=== PATIENT | female | born 1965 | race Caucasian/White ===

== ENCOUNTER 2016-11-06 13:45 | Emergency (ER) | payer OTHER ==
[2016-11-06 14:07] VITALS: BP 145/80; PULSE 81; RESP 18; TEMP 98.4
[2016-11-06] MEDS ORDERED: ORPHENADRINE 30 MG/ML 2 ML VIAL IM STA (14:30)
[2016-11-06] MEDS ORDERED: KETOROLAC 60 MG/2 ML VIAL IM STA (14:30)
--- NOTE | 2016-11-06 14:30 | ED ---
General Adult HPI - General Chief complaint: Back Pain/Injury Stated complaint: Sciatica Pain Time Seen by Provider: 11/06/16 14:17 Source: patient, RN notes reviewed Mode of arrival: ambulatory Limitations: no limitations - History of Present Illness Initial comments: This is a 51-year-old female who presents with radicular pain down the left lower extremity. Patient states this feels like the sciatica symptoms that she has dealt with in the past. Patient states she's had similar symptoms to the right leg. Patient denies any fall or injury to the back. Patient states this is been bothering her for about 7 days. Patient has mostly been taking Motrin for the pain. Patient is requesting Toradol. Patient denies any numbness/ weakness or tingling to bilateral lower extremities. Patient is able to ambulate. Patient states she has chronic back pain, but this is at baseline today. Patient's past medical history significant for multiple sclerosis and pseudotumor cerebri. Patient denies any history of asthma or GI bleeding. Patient denies any recent fever, chills, shortness breath, chest pain, abdominal pain, nausea/vomiting/diarrhea, back pain, hematuria, headache, or visual changes, or any other complaints. - Related Data Home Medications Medication Instructions Recorded Confirmed acetaZOLAMIDE [Diamox] 250 mg PO BID 04/22/15 04/23/15 Previous Rx's Medication Instructions Recorded Aspirin EC [Ecotrin Low Dose] 81 mg PO DAILY tablet. 04/26/15 Atorvastatin [Lipitor] 10 mg PO HS #30 tab 04/26/15 INSULIN LISPRO (HumaLOG) [humaLOG] 0 units SQ ACHS #1 vial 04/26/15 INSULIN LISPRO (HumaLOG) [humaLOG] 5 units SQ ACHS #1 vial 04/26/15 Insulin NPH/Reg Insulin 70/30 40 unit SQ AC-BID vial 04/26/15 [humuLIN 70/30 VIAL] Nizatidine [Axid] 150 mg PO BID #60 capsule 04/26/15 predniSONE 0 mg PO DIRECTED #150 tab 04/26/15 Cyclobenzaprine [Flexeril] 5 mg PO TID 3 Days 11/06/16 Allergies Allergy/AdvReac Type Severity Reaction Status Date / Time Penicillins Allergy Anaphylaxis Verified 11/06/16 14:07 Sulfa (Sulfonamide Allergy Anaphylaxis Verified 11/06/16 14:07 Antibiotics) Review of Systems ROS Statement: Those systems with pertinent positive or pertinent negative responses have been documented in the HPI. ROS Other: All systems not noted in ROS Statement are negative. Past Medical History Past Medical History: Diabetes Mellitus, Thyroid Disorder Additional Past Medical History / Comment(s): MS, History of Any Multi-Drug Resistant Organisms: None Reported Past Surgical History: Cholecystectomy Past Anesthesia/Blood Transfusion Reactions: No Reported Reaction Past Psychological History: No Psychological Hx Reported Smoking Status: Current every day smoker Past Alcohol Use History: None Reported Past Drug Use History: None Reported - Past Family History Father Family Medical History: Cancer Additional Family Medical History / Comment(s): lung General Exam - General Exam Comments Initial Comments: General: The patient is awake and alert, in no distress, and does not appear acutely ill. Neck: The neck is supple, there is no tenderness or JVD. Cardiovascular: There is a regular rate and rhythm. No murmur, rub or gallop is appreciated. Respiratory: Lungs are clear to auscultation, respirations are non-labored, breath sounds are equal. No wheezes, stridor, rales, or rhonchi. Musculoskeletal: There is tenderness to palpation over the posterior left hip. Negative straight leg raise. There is also tenderness to the lumbar spine, but patient states this is chronic for her. Full range of motion, strength 5/5 and Sensation intact. Posterior tibial pulses are 2+ bilaterally. Patient is able to ambulate. Neurological: A&O x 3. CN II-XII intact, There are no obvious motor or sensory deficits. Coordination appears grossly intact. Speech is normal. Skin: Skin is warm and dry and no rashes or lesions are noted. Psychiatric: Normal mood and affect. Limitations: no limitations Course Vital Signs 11/06/16 14:02 Temperature 98.4 F Pulse Rate 81 Respiratory 18 Rate Blood Pressure 145/80 O2 Sat by Pulse 97 Oximetry Medical Decision Making - Medical Decision Making Is a 51-year-old female presents with left-sided sciatic pain. On physical exam there is tenderness to palpation over the posterior left hip. Negative straight leg raise. There is also tenderness to the lumbar spine, but patient states this is chronic for her. Full range of motion, strength 5/5 and Sensation intact. Posterior tibial pulses are 2+ bilaterally. Patient is requesting Toradol. Patient was given a dose of Toradol and Norflex in the EC today. Discussed [id number] ibuprofen and/or Tylenol for any pain. Discussed avoiding steroids due to patient's history of diabetes. Patient was receptive to this. Discussed the patient will be given a prescription for Flexeril. Discussed that patient should follow up with PCP in one to 2 days or return to the [facility] for any worsening symptoms or for any further concerns. Patient was receptive to this plan and patient will be discharged home. I discussed his case with attending physician Dr. Weathers who agrees the plan as stated above. Disposition Clinical Impression: Sciatica Disposition: HOME SELF-CARE Condition: Good Instructions: Sciatica (ED) Additional Instructions: Please continue use of ibuprofen or Tylenol [id number] severe for pain. Please use Flexeril as prescribed and be aware that this medication can make you drowsy. Please follow-up with family doctor in the next 2 days of symptoms have not improved. Please return to emergency room if the symptoms increase or worsen or for any other concerns. Prescriptions: Cyclobenzaprine [Flexeril] 5 mg PO TID 3 Days Time of Disposition: 14:38
== END 2016-11-06 14:46 | disposition home or self-care (01) ==
LOC: EC 13:45
DX: M54.32 Sciatica, left side (principal); G89.29 Other chronic pain; M54.9 Dorsalgia, unspecified; G35 Multiple sclerosis; E11.9 Type 2 diabetes mellitus without complications; F17.200 Nicotine dependence, unspecified, uncomplicated; G93.2 Benign intracranial hypertension; Z79.899 Other long term (current) drug therapy; Z88.0 Allergy status to penicillin; Z88.2 Allergy status to sulfonamides
CPT/HCPCS: 96372 ×2; 99283; J2360; J1885

== ENCOUNTER → 2016-11-18 | Outpatient (CLI) | payer OTHER ==
--- NOTE | 2016-11-18 22:05 | MR ---
EXAMINATION TYPE: MR lumbar spine wo con DATE OF EXAM: 11/18/2016 5:14 PM COMPARISON: NONE HISTORY: Multiple sclerosis, Subacute back pain TECHNIQUE: Single sagittal T2 sequence was obtained. Patient could not continue with additional imaging. FINDINGS: Severely limited exam due to single sequence obtained. Suggestion of abnormal signal within the spina l cord at the T10-T11 level. Alignment is anatomic and vertebral body height is maintained. Severe degenerative disc disease L5-S1 with loss of disc signal and base. Mild to moderate changes at L4-L5. At L4-L5 there is a suggestion of a sagittal disc bulge. No obvious canal stenosis. L5-S1 there is suggestion of a sagittal disc protrusion. Discogenic marrow changes seen with severe d egenerative disc disease and bilateral foraminal encroachment to a moderate degree with facet arthrop athy. Remaining levels on this single sequence provided demonstrate no definite abnormality. IMPRESSION: 1. Limited exam due the patient's inability complete the exam. Only a single T2 sagittal sequence cou ld be obtained. Findings are suspicious of abnormal signal within the spinal cord at the T10-T11 leve l which could be related myelitis. Correlate clinically. 2. Findings suggest sagittal disc protrusion L5-S1 with moderate bilateral foraminal encroachment and severe degenerative disc disease. 3. Sagittal disc bulging L4-L5 with mild to moderate degenerative disc disease.
== END | disposition home or self-care (01) ==
LOC: RADMRIMAIN 16:37
PROVIDERS: ATTEND Psychiatry & Neurology Neurology
DX: M51.26 Other intervertebral disc displacement, lumbar region (principal); M51.36 Other intervertebral disc degeneration, lumbar region
CPT/HCPCS: 72148

== ENCOUNTER → 2017-06-24 | Outpatient (CLI) | payer OTHER ==
--- NOTE | 2017-06-24 12:15 | MR ---
EXAMINATION TYPE: MR brain wo con DATE OF EXAM: 06/24/2017 COMPARISON: 04/23/2015 HISTORY: MS TECHNIQUE: Multiplanar, multisequence images of the brain and brainstem is performed without the utilization of intravenous contrast. FINDINGS: Diffusion weighted images demonstrate no evidence of a recent infarct or other diffusion ab normality. Punctate foci of T2 shine through are seen within the left frontal lobe on image 184 of se rashid 5 and within the right pericallosal white matter on image 152 without corresponding low signal o n ADC map. Scattered areas of T2/FLAIR hyperintensity are seen within the subcortical, pericallosal, and periven tricular white matter. The largest lymph node measures located within the right frontal lobe within t he superior frontal gyrus measuring 1.0 x 3.8 mm with adjacent signal abnormalities. The largest on t he left is located within the parietal lobe in the guzman radiata measuring 8.6 x 3.1 mm. No plaques are seen within the brainstem or cerebellum. There is no extra-axial fluid collection or significant white matter signal abnormality. The ventric ular system and cisternal spaces are normal in size and appearance. The brain volume is age appropri ate. Midline structures demonstrate normal morphology. The craniocervical junction appears within normal limits. Unchanged subcentimeter left maxillary mucosal retention cyst versus polyp is identified. Rem aining paranasal sinuses are unremarkable. The dural venous sinuses appear patent. The globes are int act. No obvious encephalomalacia is seen in the dorsal midbrain in the region of prior stated CVA. IMPRESSION: 1. Overall similar size, morphology, and number of supratentorial white matter lesions in keeping wit h the patient's history of multiple sclerosis. 2. Chronic subcentimeter left maxillary mucosal retention cyst versus polyp.
== END | disposition home or self-care (01) ==
LOC: RADMRIMAIN 10:49
PROVIDERS: ATTEND Psychiatry & Neurology Neurology
DX: G35 Multiple sclerosis (principal); G93.2 Benign intracranial hypertension; Z86.73 Personal history of transient ischemic attack (TIA), and cerebral infarction without residual deficits
CPT/HCPCS: 70551

== ENCOUNTER → 2017-06-26 | Outpatient (CLI) | payer OTHER ==
[2017-06-26 11:58] LABS: Basophils # (A) 0.1 k/uL (0-0.2); Basophils % (A) 1 %; CH 28.5; CHCM 33.2; Eosinophils # (A) 0.8 k/uL (0-0.7); Eosinophils % (A) 8 %; HCT 46.7 % (34.0-46.0); HDW 2.42; HGB 15.7 gm/dL (11.4-16.0); Luc # (Auto) 0.25; Luc % (Auto) 3; Lymphocytes # (A) 3.4 k/uL (1.0-4.8); Lymphocytes % (A) 36 %; MCH 28.9 pg (25.0-35.0); MCHC 33.6 g/dL (31.0-37.0); Mean Platelet Volume 7.3; Monocytes # (A) 0.5 k/uL (0-1.0); Monocytes % (A) 5 %; Neutrophils # (A) 4.6 k/uL (1.3-7.7); Neutrophils % (A) 48 %; RBC 5.43 m/uL (3.80-5.40); RDW 13.5 % (11.5-15.5); WBC 9.6 k/uL (3.8-10.6); WBC (Perox) 9.61
== END | disposition home or self-care (01) ==
LOC: LABWHC1 11:23
PROVIDERS: ATTEND Psychiatry & Neurology Neurology
DX: G35 Multiple sclerosis (principal)
CPT/HCPCS: 36415; 82306; 82607; 84439; 84443; 84450; 84460; 85025

== ENCOUNTER 2017-07-04 22:27 | Emergency (ER) | payer OTHER ==
[2017-07-04 22:34] VITALS: BP 126/67; PULSE 78; RESP 18; TEMP 97.8
[2017-07-04] MEDS ORDERED: DIPH,PERTUS(ACELL)TETVAC-LF 0.5 ML VIAL IM ONE (23:23)
[2017-07-04] MEDS ORDERED: CLINDAMYCIN 150 MG CAP PO STA (23:37)
[2017-07-04] MEDS ORDERED: IBUPROFEN 600 MG STARTER PACK 4 TAB BTL PO STA (23:37)
--- NOTE | 2017-07-04 23:37 | ED ---
General Adult HPI - General Chief complaint: Skin/Abscess/Foreign Body Stated complaint: Burn/Foot Time Seen by Provider: 07/04/17 23:06 Source: patient, RN notes reviewed Mode of arrival: ambulatory Limitations: no limitations - History of Present Illness Initial comments: 52 yo female presents to the ER with cc of left foot second-degree burn. Patient states that she still boil on this 3 days ago. Patient is far less tenderness. Patient states now some pain and swelling to the top of the foot with associated redness of she was concerned. Patient denies any calf pain. Patient denies any fever chills. Patient denies any nausea vomiting. Patient states redness and swelling has stayed at her foot does not seem to be traveling upwards. Patient states that she is not currently having any other symptoms at this. Patient states that she does have a history of diabetes. Patient was concerned due to the continued pain so she thought that she should be evaluated.Patient denies any recent fever, chills, shortness of breath, chest pain, back pain, abdominal pain, nausea vomiting, numbness or tingling, dysuria or hematuria, constipation or diarrhea, headaches or visual changes, or any other current symptoms. - Related Data Home Medications Medication Instructions Recorded Confirmed acetaZOLAMIDE [Diamox] 250 mg PO BID 04/22/15 07/04/17 Previous Rx's Medication Instructions Recorded Aspirin EC [Ecotrin Low Dose] 81 mg PO DAILY tablet. 04/26/15 Atorvastatin [Lipitor] 10 mg PO HS #30 tab 04/26/15 INSULIN LISPRO (HumaLOG) [humaLOG] 0 units SQ ACHS #1 vial 04/26/15 INSULIN LISPRO (HumaLOG) [humaLOG] 5 units SQ ACHS #1 vial 04/26/15 Insulin NPH/Reg Insulin 70/30 40 unit SQ AC-BID vial 04/26/15 [humuLIN 70/30 VIAL] Nizatidine [Axid] 150 mg PO BID #60 capsule 04/26/15 predniSONE 0 mg PO DIRECTED #150 tab 04/26/15 Cyclobenzaprine [Flexeril] 5 mg PO TID 3 Days 11/06/16 Bacitracin Oint 1 applic TOPICAL BID 7 Days 07/04/17 Clindamycin [Cleocin] 450 mg PO Q8HR #90 capsule 07/04/17 Ibuprofen [Motrin] 600 mg PO Q6HR PRN #20 tab 07/04/17 Allergies Allergy/AdvReac Type Severity Reaction Status Date / Time Penicillins Allergy Anaphylaxis Verified 07/04/17 22:34 Sulfa (Sulfonamide Allergy Anaphylaxis Verified 07/04/17 22:34 Antibiotics) Review of Systems ROS Statement: Those systems with pertinent positive or pertinent negative responses have been documented in the HPI. ROS Other: All systems not noted in ROS Statement are negative. Past Medical History Past Medical History: Diabetes Mellitus, Thyroid Disorder Additional Past Medical History / Comment(s): MS, History of Any Multi-Drug Resistant Organisms: None Reported Past Surgical History: Cholecystectomy Past Anesthesia/Blood Transfusion Reactions: No Reported Reaction Past Psychological History: No Psychological Hx Reported Smoking Status: Current every day smoker Past Alcohol Use History: None Reported Past Drug Use History: None Reported - Past Family History Father Family Medical History: Cancer Additional Family Medical History / Comment(s): lung General Exam - General Exam Comments Initial Comments: General: The patient is awake and alert, in no distress, and does not appear acutely ill. Neck: The neck is supple, there is no tenderness. Cardiovascular: There is a regular rate and rhythm. No murmur, rub or gallop is appreciated. Respiratory: Lungs are clear to auscultation, respirations are non-labored, breath sounds are equal. No wheezes, stridor, rales, or rhonchi. Musculoskeletal: Sensation intact with 2+ pulses at the level chancre frontal motion of left knee left ankle. Patient is could have some redness to the left foot surrounding a 3 x 3 cm second-degree burn. At the left foot. Full range of motion of the left foot. No fluctuance noted. Neurological: CN II-XII intact, There are no obvious motor or sensory deficits. Coordination appears grossly intact. Speech is normal. Skin: Skin is warm and dry and no rashes or lesions are noted. Psychiatric: Normal mood and affect. Limitations: no limitations Course Vital Signs 07/04/17 22:31 Temperature 97.8 F Pulse Rate 78 Respiratory 18 Rate Blood Pressure 126/67 O2 Sat by Pulse 98 Oximetry Procedures - Procedures Initial comment: The area was cleaned. Debridement of skin was removed. Patient tolerated the procedure well. Medical Decision Making - Medical Decision Making 52-year-old female presents for second degree burn to left foot. At this time there is appear to be associated infection. The patient's tetanus. It was cleaned. We discussed care of the area. Discussed antibiotics for home. We discussed follow-up with discussed return parameters and all questions have been answered. Patient is in agreement plan. This time she will be discharged home. Disposition Clinical Impression: Burn of foot, left, second degree, Cellulitis of left foot Disposition: HOME SELF-CARE Condition: Stable Instructions: Second Degree Burn (ED), Cellulitis (ED) Additional Instructions: Please use medication as discussed. Please follow up with family doctor if symptoms have not improved over the next two days. Please return to the emergency room if your symptoms increase or worsen or for any other concerns. Prescriptions: Bacitracin Oint 1 applic TOPICAL BID 7 Days Clindamycin [Cleocin] 450 mg PO Q8HR #90 capsule Ibuprofen [Motrin] 600 mg PO Q6HR PRN #20 tab PRN Reason: Pain Referrals: Toby Chauhan MD [Primary Care Provider] - 1-2 days Time of Disposition: 23:34
== END 2017-07-04 23:53 | disposition home or self-care (01) ==
LOC: EC 22:27
DX: T25.222A Burn of second degree of left foot, initial encounter (principal); L03.116 Cellulitis of left lower limb; F17.200 Nicotine dependence, unspecified, uncomplicated; Z79.899 Other long term (current) drug therapy; Z88.0 Allergy status to penicillin; Z88.2 Allergy status to sulfonamides; Z23 Encounter for immunization; X10.2XXA Contact with fats and cooking oils, initial encounter
CPT/HCPCS: 16020; 90471; 90715; 99283

== ENCOUNTER 2017-08-09 16:28 | Emergency (ER) | payer OTHER ==
[2017-08-09 16:44] VITALS: BP 149/91; PULSE 81; RESP 18; TEMP 98.2
[2017-08-09] MEDS ORDERED: TOPICAL SKIN ADHESIVE 1 EACH AMP TOPICAL ONE (16:46)
--- NOTE | 2017-08-09 16:51 | ED ---
Wound/Laceration HPI - General Stated Complaint: Finger Laceration Time Seen by Provider: 08/09/17 16:39 Source: patient, RN notes reviewed Mode of arrival: ambulatory Limitations: no limitations - History of Present Illness -: hour(s) (1 hour) Extremity Location: Left: Hand (pad of left 3rd digit) Place: home Patient Tetanus UTD: Yes Context: accidental, fall, other (Patient is unsure what she cut her finger on when she fell.) Associated Symptoms: none - Related Data Home Medications Medication Instructions Recorded Confirmed acetaZOLAMIDE [Diamox] 250 mg PO BID 04/22/15 07/04/17 Previous Rx's Medication Instructions Recorded Aspirin EC [Ecotrin Low Dose] 81 mg PO DAILY tablet. 04/26/15 Atorvastatin [Lipitor] 10 mg PO HS #30 tab 04/26/15 INSULIN LISPRO (HumaLOG) [humaLOG] 0 units SQ ACHS #1 vial 04/26/15 INSULIN LISPRO (HumaLOG) [humaLOG] 5 units SQ ACHS #1 vial 04/26/15 Insulin NPH/Reg Insulin 70/30 40 unit SQ AC-BID vial 04/26/15 [humuLIN 70/30 VIAL] Nizatidine [Axid] 150 mg PO BID #60 capsule 04/26/15 predniSONE 0 mg PO DIRECTED #150 tab 04/26/15 Cyclobenzaprine [Flexeril] 5 mg PO TID 3 Days 11/06/16 Bacitracin Oint 1 applic TOPICAL BID 7 Days 07/04/17 Clindamycin [Cleocin] 450 mg PO Q8HR #90 capsule 07/04/17 Ibuprofen [Motrin] 600 mg PO Q6HR PRN #20 tab 07/04/17 Allergies Allergy/AdvReac Type Severity Reaction Status Date / Time Penicillins Allergy Anaphylaxis Verified 08/09/17 16:42 Sulfa (Sulfonamide Allergy Anaphylaxis Verified 08/09/17 16:42 Antibiotics) Review of Systems ROS Statement: Those systems with pertinent positive or pertinent negative responses have been documented in the HPI. ROS Other: All systems not noted in ROS Statement are negative. Constitutional: Denies: fever, chills Respiratory: Denies: cough, dyspnea Cardiovascular: Denies: chest pain Gastrointestinal: Denies: abdominal pain, nausea, vomiting, diarrhea Genitourinary: Denies: dysuria, hematuria Skin: Denies: rash Neurological: Denies: headache Past Medical History Past Medical History: Diabetes Mellitus, Thyroid Disorder Additional Past Medical History / Comment(s): MS, History of Any Multi-Drug Resistant Organisms: None Reported Past Surgical History: Cholecystectomy Past Anesthesia/Blood Transfusion Reactions: No Reported Reaction Past Psychological History: No Psychological Hx Reported Smoking Status: Current every day smoker Past Alcohol Use History: None Reported Past Drug Use History: None Reported - Past Family History Father Family Medical History: Cancer Additional Family Medical History / Comment(s): lung General Exam - General Exam Comments Initial Comments: General: Awake and alert, well-developed; in no apparent distress. HEENT: Head atraumatic, normocephalic. Pupils are equal, round and reactive to light. Extraocular movements intact. Neck: Supple. Normal ROM. Cardiovascular: Regular rate and rhythm. No murmurs, rubs or gallops. Chest symmetrical. Respiratory: Lungs clear to auscultation bilaterally. No wheezes, rales or rhonchi. Normal respiratory effort with no use of accessory muscles. Skin/Musculoskeletal: Small crescent-shaped laceration on pad of left third digit, involving only epithelial layer. Sensation is intact. Radial pulses are 2+ and palpable. Neurological: Alert and oriented x3. CN II-XII grossly intact. Speech is fluent and answers are appropriate. No focal neuro deficits. Psychiatric: Normal mood and affect. No overt signs of depression or anxiety noted. Procedures - Laceration Laceration #1 Consent Obtained: verbal consent Indication: laceration Site: other (pad of left 3rd digit) Size (cm): 1 Description: flap Depth: simple, single layer Sedation/Analgesia: none Pre-repair: wound explored, irrigated extensively, deep structures intact Type of Sutures: other (dermabond ) Patient Tolerated Procedure: well, no complications Medical Decision Making - Medical Decision Making This is a 52-year-old female who presents to emergency department with chief complaint of left finger laceration. Edges of the laceration were well approximated. Dermabond was applied and dressing was placed. Patient is in no acute distress and will be discharged home. Disposition Clinical Impression: Laceration of left middle finger Disposition: HOME SELF-CARE Condition: Good Instructions: Laceration (ED) Additional Instructions: Please allow Dermabond to dry and fall off on its own within the next few days. Please return to the ED if any signs of infection should arise including redness, tenderness or purulent discharge. Please follow up with primary care provider within 1-2 days. Return to emergency department if symptoms should worsen or any concerns arise. Referrals: Toby Chauhan MD [Primary Care Provider] - 1-2 days Time of Disposition: 16:54
== END 2017-08-09 17:05 | disposition home or self-care (01) ==
LOC: EC 16:28
DX: S61.213A Laceration without foreign body of left middle finger without damage to nail, initial encounter (principal); F17.200 Nicotine dependence, unspecified, uncomplicated; Z88.0 Allergy status to penicillin; Z88.2 Allergy status to sulfonamides; Z79.899 Other long term (current) drug therapy; W19.XXXA Unspecified fall, initial encounter
CPT/HCPCS: 12001; 99282

== ENCOUNTER 2017-11-16 15:31 | Emergency (ER) | payer OTHER ==
[2017-11-16] MEDS ORDERED: SODIUM CHLORIDE 0.9% 1,000 ML IV STA (16:06)
[2017-11-16] MEDS ORDERED: METOCLOPRAMIDE 5 MG/ML 2 ML VIAL IVP STA (16:07)
[2017-11-16] MEDS ORDERED: diphenhydrAMINE 50 MG/ML 1 ML VIAL IVP STA (16:07)
--- NOTE | 2017-11-16 16:29 | ED ---
General Adult HPI - General Chief complaint: Headache Stated complaint: HEADACHE Time Seen by Provider: 11/16/17 16:06 Source: patient, RN notes reviewed Mode of arrival: ambulatory Limitations: no limitations - History of Present Illness Initial comments: Patient's a 52-year-old female significant past medical history for stroke, who presents emergency room today with a chief complaint of bilateral eye flickering. Patient states that yesterday she began feeling like she was coming down with cold. She does admit that she later the day began having some chest palpitations. Patient admits that today she's had a headache located both in size the top. She describes it as pressure. She currently rates an 8/ 10. She states she's had headaches similar in the past. Patient admits to some flickering in her eyes bilaterally worse on the left than the right. She states it has improved and seems to be going away at this time. Patient denies any other points or symptoms currently. Patient denies any recent fever, chills , shortness of breath, chest pain, back pain, abdominal pain, nausea or vomiting , numbness or tingling, dysuria or hematuria, constipation or diarrhea, or any other complaints. - Related Data Home Medications Medication Instructions Recorded Confirmed No Known Home Medications [No 11/16/17 11/16/17 Known Home Medications] Allergies Allergy/AdvReac Type Severity Reaction Status Date / Time Penicillins Allergy Anaphylaxis Verified 11/16/17 16:18 Sulfa (Sulfonamide Allergy Anaphylaxis Verified 11/16/17 16:18 Antibiotics) Review of Systems ROS Statement: Those systems with pertinent positive or pertinent negative responses have been documented in the HPI. ROS Other: All systems not noted in ROS Statement are negative. Past Medical History Past Medical History: CVA/TIA, Diabetes Mellitus, Thyroid Disorder Additional Past Medical History / Comment(s): MS, History of Any Multi-Drug Resistant Organisms: None Reported Past Surgical History: Cholecystectomy Past Anesthesia/Blood Transfusion Reactions: No Reported Reaction Past Psychological History: No Psychological Hx Reported Smoking Status: Current every day smoker Past Alcohol Use History: None Reported Past Drug Use History: None Reported - Past Family History Father Family Medical History: Cancer Additional Family Medical History / Comment(s): lung General Exam - General Exam Comments Initial Comments: General: The patient is awake and alert, in no distress, and does not appear acutely ill. Eye: Pupils are equal, round and reactive to light, extra-ocular movements are intact. No nystagmus. There is normal conjunctiva bilaterally. No signs of icterus. Ears, nose, mouth and throat: There are moist mucous membranes and no oral lesions. Neck: The neck is supple, there is no tenderness or JVD. Cardiovascular: There is a regular rate and rhythm. No murmur, rub or gallop is appreciated. Respiratory: Lungs are clear to auscultation, respirations are non-labored, breath sounds are equal. No wheezes, stridor, rales, or rhonchi. Gastrointestinal: Soft, non-distended, non-tender abdomen without masses or organomegaly noted. There is no rebound or guarding present. No CVA tenderness. Bowel sounds are unremarkable. Musculoskeletal: Normal ROM, no tenderness. Strength 5/5. Sensation intact. Pulses equal bilaterally 2+. Neurological: A&O x 3. CN II-XII intact, There are no obvious motor or sensory deficits. Coordination appears grossly intact. Speech is normal. Normal finger nose testing. Normal rapid alternating movements. Strength 5/5 bilaterally both upper and lower extremities. Normal gait. Skin: Skin is warm and dry and no rashes or lesions are noted. Psychiatric: Cooperative, appropriate mood & affect, normal judgment. Limitations: no limitations Course Vital Signs 11/16/17 16:14 Temperature 97.9 F Pulse Rate 62 Respiratory 20 Rate Blood Pressure 184/93 O2 Sat by Pulse 98 Oximetry EKG Findings - EKG Comments: EKG Findings:: EKG performed at 1622: A 12-lead EKG was performed and interpreted by me as showing the following: Rate is 70, and rhythm is normal sinus. There are normal QRS complexes and normal R-wave progression. ST segments have no elevation or depression, and IL segments appear normal. Medical Decision Making - Medical Decision Making Patient reexamined at this time shows no signs of distress. She is resting comfortably in stretcher. Patient denies any symptoms at this time. States all symptoms have resolved. There is no visual changes at this time. No headache. Patient's CT of the head negative. Labs have been reviewed. She states feels comfortable following up the family doctor. Patient will be discharged advised return if any symptoms increase worsen. - Lab Data Result diagrams: 11/16/17 16:32 11/16/17 16:32 Lab Results 11/16/17 11/16/17 11/16/17 Range/Units 16:32 16:32 16:32 WBC 10.8 H (3.8-10.6) k/uL RBC 5.74 H (3.80-5.40) m/uL Hgb 15.7 (11.4-16.0) gm/dL Hct 49.8 H (34.0-46.0) % MCV 86.9 (80.0-100.0) fL MCH 27.4 (25.0-35.0) pg MCHC 31.5 (31.0-37.0) g/dL RDW 14.8 (11.5-15.5) % Plt Count 384 (150-450) k/uL Neutrophils % 47 % Lymphocytes % 38 % Monocytes % 5 % Eosinophils % 7 % Basophils % 1 % Neutrophils # 5.0 (1.3-7.7) k/uL Lymphocytes # 4.1 (1.0-4.8) k/uL Monocytes # 0.6 (0-1.0) k/uL Eosinophils # 0.8 H (0-0.7) k/uL Basophils # 0.1 (0-0.2) k/uL PT (9.0-12.0) sec INR (<1.2) APTT (22.0-30.0) sec Sodium 139 (137-145) mmol/L Potassium 4.5 (3.5-5.1) mmol/L Chloride 103 (98-107) mmol/L Carbon Dioxide 25 (22-30) mmol/L Anion Gap 11 mmol/L BUN 11 (7-17) mg/dL Creatinine 0.50 L (0.52-1.04) mg/dL Est GFR (MDRD) Af Amer >60 (>60 ml/min/1.73 sqM) Est GFR (MDRD) Non-Af >60 (>60 ml/min/1.73 sqM) Glucose 206 H (74-99) mg/dL Calcium 9.5 (8.4-10.2) mg/dL Total Bilirubin 0.5 (0.2-1.3) mg/dL AST 20 (14-36) U/L ALT 31 (9-52) U/L Alkaline Phosphatase 103 (38-126) U/L Total Creatine Kinase 40 (30-135) U/L CK-MB (CK-2) 0.5 (0.0-2.4) ng/mL CK-MB (CK-2) Rel Index 1.3 Troponin I <0.012 (0.000-0.034) ng/mL Total Protein 6.6 (6.3-8.2) g/dL Albumin 4.0 (3.5-5.0) g/dL 11/16/17 Range/Units 16:32 WBC (3.8-10.6) k/uL RBC (3.80-5.40) m/uL Hgb (11.4-16.0) gm/dL Hct (34.0-46.0) % MCV (80.0-100.0) fL MCH (25.0-35.0) pg MCHC (31.0-37.0) g/dL RDW (11.5-15.5) % Plt Count (150-450) k/uL Neutrophils % % Lymphocytes % % Monocytes % % Eosinophils % % Basophils % % Neutrophils # (1.3-7.7) k/uL Lymphocytes # (1.0-4.8) k/uL Monocytes # (0-1.0) k/uL Eosinophils # (0-0.7) k/uL Basophils # (0-0.2) k/uL PT 10.5 (9.0-12.0) sec INR 1.1 (<1.2) APTT 24.2 (22.0-30.0) sec Sodium (137-145) mmol/L Potassium (3.5-5.1) mmol/L Chloride (98-107) mmol/L Carbon Dioxide (22-30) mmol/L Anion Gap mmol/L BUN (7-17) mg/dL Creatinine (0.52-1.04) mg/dL Est GFR (MDRD) Af Amer (>60 ml/min/1.73 sqM) Est GFR (MDRD) Non-Af (>60 ml/min/1.73 sqM) Glucose (74-99) mg/dL Calcium (8.4-10.2) mg/dL Total Bilirubin (0.2-1.3) mg/dL AST (14-36) U/L ALT (9-52) U/L Alkaline Phosphatase (38-126) U/L Total Creatine Kinase (30-135) U/L CK-MB (CK-2) (0.0-2.4) ng/mL CK-MB (CK-2) Rel Index Troponin I (0.000-0.034) ng/mL Total Protein (6.3-8.2) g/dL Albumin (3.5-5.0) g/dL Disposition Clinical Impression: Atypical migraine, Visual changes Disposition: HOME SELF-CARE Condition: Stable Instructions: Acute Headache (ED) Additional Instructions: Please follow-up with family doctor in the next 1-2 days. Please return to emergency room symptoms increase worsen or for any other concerns. Referrals: Toby Chauhan MD [Primary Care Provider] - 1-2 days Time of Disposition: 18:36
[2017-11-16 16:47] LABS: Basophils # (A) 0.1 k/uL (0-0.2); Basophils % (A) 1 %; Eosinophils # (A) 0.8 k/uL (0-0.7); Eosinophils % (A) 7 %; HCT 49.8 % (34.0-46.0); HGB 15.7 gm/dL (11.4-16.0); Lymphocytes # (A) 4.1 k/uL (1.0-4.8); Lymphocytes % (A) 38 %; MCH 27.4 pg (25.0-35.0); MCHC 31.5 g/dL (31.0-37.0); MCV 86.9 fL (80.0-100.0); Mean Platelet Volume 7.6; Monocytes # (A) 0.6 k/uL (0-1.0); Monocytes % (A) 5 %; Neutrophils % (A) 47 %; Platelet Count 384 k/uL (150-450); RBC 5.74 m/uL (3.80-5.40); RDW 14.8 % (11.5-15.5); WBC 10.8 k/uL (3.8-10.6)
[2017-11-16 16:55] LABS: ALT 31 U/L (9-52); AST 20 U/L (14-36); Alkaline Phosphatase 103 U/L (38-126); Anion Gap 11 mmol/L; Blood Urea Nitrogen 11 mg/dL (7-17); Calcium 9.5 mg/dL (8.4-10.2); Carbon Dioxide 25 mmol/L (22-30); Chloride 103 mmol/L (98-107); Glucose 206 mg/dL (74-99); Potassium 4.5 mmol/L (3.5-5.1); Sodium 139 mmol/L (137-145); Total Bilirubin 0.5 mg/dL (0.2-1.3); Total Protein 6.6 g/dL (6.3-8.2)
[2017-11-16 17:07] LABS: Creatine Kinase 40 U/L (30-135)
[2017-11-16 17:13] LABS: INR 1.1 (<1.2)
[2017-11-16 17:14] LABS: Partial Thromboplastin Time 24.2 sec (22.0-30.0); Prothrombin Time 10.5 sec (9.0-12.0)
[2017-11-16 17:19] LABS: Creatine Kinase MB 0.5 ng/mL (0.0-2.4); Troponin I <0.012 ng/mL (0.000-0.034)
--- NOTE | 2017-11-16 18:22 | CT ---
EXAMINATION TYPE: CT brain wo con DATE OF EXAM: 11/16/2017 COMPARISON: 04/22/2015 HISTORY: BARRON and vision changes today. CT DLP: 1103 mGycm Automated exposure control for dose reduction was used. FINDINGS: Ventricles have normal size. There is no mass effect nor midline shift. There is no sign of intracran ial hemorrhage. The calvarium is intact. IMPRESSION: NEGATIVE CT SCAN OF THE BRAIN. NO CHANGE.
[2017-11-16 18:36] VITALS: BP 151/88; PULSE 64; RESP 18; TEMP 97.8
== END 2017-11-16 18:58 | disposition home or self-care (01) ==
LOC: EC 15:31
DX: G43.909 Migraine, unspecified, not intractable, without status migrainosus (principal); F17.200 Nicotine dependence, unspecified, uncomplicated; Z86.73 Personal history of transient ischemic attack (TIA), and cerebral infarction without residual deficits; Z88.0 Allergy status to penicillin; Z88.2 Allergy status to sulfonamides
CPT/HCPCS: 36415; 93005; 80053; 82550; 82553; 84484; 85025; 85610; 85730; 70450; 99284; 96374; 96375; 96361 ×2; J1200; J2765

== ENCOUNTER → 2018-03-25 | Outpatient (CLI) | payer OTHER ==
[2018-03-25 11:59] LABS: Blood Urea Nitrogen 14 mg/dL (7-17)
--- NOTE | 2018-03-28 10:21 | MR ---
EXAMINATION TYPE: MR cspine/lspine wo/w con DATE OF EXAM: 03/25/2018 COMPARISON: Cervical spine MR dated 09/12/2016 and lumbar spine MR dated 11/18/2014 HISTORY: Multiple sclerosis / Cervicalgia TECHNIQUE: Multiplanar, multisequence images of the cervical spine and lumbar spine is performed without and wit h IV contrast, utilizing 10 mL intravenous Gadavist FINDINGS: CERVICAL SPINE: There is grade 1 retrolisthesis of C5 on C6. Remainder of the cervical vertebrae is maintained alignm ent. Modic type II degenerative endplate changes are seen in the upper cervical spine. Multilevel dis c desiccation is noted. Vertebral bodies maintain normal vertebral body heights. There is abnormal si gnal within the cervical cord at the level C2, C3, and C4 that is patchy in nature with the most pron ounced abnormality at the level of C3 seen on PD MS protocol sagittal image 7. The most focal area me asures approximately 9 mm in length. This is unchanged from the prior exam of 2016. No significant co rd expansion or atrophy is seen. Abnormal signal is slightly right paracentral. C2-C3: Again there is a small focal central disc protrusion/herniation narrowing the ventral subarach noid space and creating mild spinal canal stenosis. No neural foraminal narrowing is seen. C3-C4: There is a small central disc herniation, progressed from the prior disc bulge, that effaces t he ventral subarachnoid space creating mild spinal canal stenosis. Minimal uncovertebral hypertrophy is seen without significant neural foraminal narrowing. C4-C5: There is redemonstration of a small left paracentral disc herniation creating narrowing of the ventral subarachnoid space and mildly narrowing the left neural foramen. This results in mild spinal canal stenosis. Right neural foramen is patent. C5-C6: Uncovertebral hypertrophy and facet arthropathy in combination with a broad-based disc bulge c reate moderate right and mild left neural foraminal narrowing. Minimal spinal canal stenosis is also seen. C6-C7: There is a small broad-based disc bulge without spinal canal stenosis or neural foraminal narr owing. C7-T1: No significant disc disease, spinal canal stenosis or neural foraminal narrowing. On postcontrast images of the cervical spine there is no abnormal enhancement. Specifically no enhanc ement is seen on the abnormal cervical plaques in the upper cervical spine. No MR evidence of active demyelination. LUMBAR SPINE: There is slight retrolisthesis of L5 with relation to S1. Remainder of the lumbar spine maintains nor mal vertebral body heights and alignment. Multilevel disc desiccation is seen. Mild degenerative endp late changes are present. Conus medullaris is unremarkable. T2 hyperintense and T1 hypointense probab le right renal cyst measures 2.4 cm. L1-L2: No significant disease, spinal canal stenosis or neural foraminal narrowing. L2-L3: No significant disc disease, spinal canal stenosis or neural foraminal narrowing. L3-L4: Small broad-based disc bulge and facet arthropathy are seen without significant spinal canal s tenosis or neural foraminal narrowing. L4-L5: There is a small broad-based disc bulge without spinal canal stenosis. Facet arthropathy is se en, left greater than right resulting in minimal bilateral neural foraminal narrowing. L5-S1: There is a bilobed broad-based disc bulge resulting in moderate neural foraminal narrowing in combination with facet arthropathy. No spinal canal stenosis. IMPRESSION: 1. Unchanged 9 mm demyelinating plaque elongated from C2 through C4 [facility] 2. Grade 1 retrolisthesis of C5 on C6 and of L5 on S1. 3. Mild degenerative disc disease of the lumbar spine without spinal canal stenosis or focal herniati on. 4. Redemonstration of a small focal disc herniation at C2-C3 right and mild spinal canal stenosis. 5. Again seen is a small left paracentral disc herniation at C4-C5 creating mild spinal canal stenosi s and mild left neural foraminal narrowing. 6. Degenerative disc disease at C5-C6 creating mild spinal canal stenosis, moderate right neural fora bharath narrowing and mild left neural foraminal narrowing. 7. No abnormal postcontrast enhancement.
== END | disposition home or self-care (01) ==
LOC: RADMRIMAIN 11:28
PROVIDERS: ATTEND Psychiatry & Neurology Neurology
DX: M43.17 Spondylolisthesis, lumbosacral region (principal); M51.36 Other intervertebral disc degeneration, lumbar region; M48.02 Spinal stenosis, cervical region; M99.71 Connective tissue and disc stenosis of intervertebral foramina of cervical region; M50.21 Other cervical disc displacement, high cervical region; M50.322 Other cervical disc degeneration at C5-C6 level
CPT/HCPCS: 82565; 84520; 72156; 72158; 36415; A9581

== ENCOUNTER → 2018-03-26 | Outpatient (CLI) | payer OTHER ==
--- NOTE | 2018-03-26 17:40 | MR ---
EXAMINATION TYPE: MR brain wo/w con DATE OF EXAM: 03/26/2018 COMPARISON: 04/23/2015 HISTORY: MS CONTRAST: Performed utilizing 10 mL intravenous Gadavist gadolinium contrast. TECHNIQUE: Multiplanar, multisequence imaging of the brain is performed on a 3.0 Leticia magnet. Demye linating disease protocol with additional Sagittal Flair sequence is performed. Study is performed wi thin 24 hours of arrival to the hospital. FINDINGS: T2 White Matter Lesions Present : Yes Approximate Number of Lesions: Multiple scattered. This includes periventricular guzman radiata and s ubcortical white matter changes. A small amount white matter change may be within the brainstem. Locations Identified : Yes Size of Largest Lesion(s): 1. 0.3 x 0.9 x 0.6 cm. Location: Right frontal lobe centrum semiovale Sequence 501 Image 22 (axial) and Sequence 601 Image 22 (sagittal). 2. 0.7 x 0.5 x 0.6 cm. Location: Left guzman radiata periventricular white matter Sequence 501 Imag e 18 (axial) and Sequence 601 Image 10 (sagittal). Enhancing Lesion(s) Present: No Change from Prior: Stable Diffusion-weighted imaging is performed. No abnormal hyperintensity is present to suggest an acute i ntracranial infarct or acute ischemic change. Ventricles and sulci are appropriate for the patient age. There are no abnormal extra-axial fluid collections. The ventricular system and cisternal spaces are normal in size and appearance. The brain volume is age appropriate. The craniocervical junction josé antonio ears within normal limits. The dural venous sinuses appear patent. No abnormal enhancement is present on post contrast images. . There is a retention cyst within the le ft maxillary sinus. Remaining paranasal sinuses and mastoid air cells within the [id number] are cl ear. IMPRESSION: 1. Stable scattered white matter changes which can be compatible with, but not diagnostic of, multip le sclerosis.
== END | disposition home or self-care (01) ==
LOC: RADMRIMAIN 12:06
PROVIDERS: ATTEND Psychiatry & Neurology Neurology
DX: R90.89 Other abnormal findings on diagnostic imaging of central nervous system (principal); G35 Multiple sclerosis
CPT/HCPCS: 70553; A9581